=== PATIENT | female | born 1950 | race Caucasian/White ===

== ENCOUNTER 2018-08-17 16:49 | Outpatient (RCR) | payer BC | END 2018-08-22 | LOC: PT 16:49 | PROVIDERS: ATTEND Neurological Surgery | DX: M71.38 Other bursal cyst, other site (principal) ==

== ENCOUNTER → 2018-09-21 | Outpatient (RCR) | payer BC | LOC: PT 08-23 09:24 | PROVIDERS: ATTEND Neurological Surgery | DX: M71.38 Other bursal cyst, other site (principal) | CPT/HCPCS: 97139 ==